=== PATIENT | female | born 1985 | race Hispanic/Latino ===

== ENCOUNTER 2019-03-25 18:31 | Emergency (ER) | payer SELFPAY ==
[~2019-03-25] VITALS: Ht 180.3 cm; Wt 136.1 kg
--- OUTSIDE RECORDS SUMMARY | 2019-03-25 18:34 | XMS REPORT ---
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 Allergies, Adverse Reactions, Alerts Allergy Name Allergy Type Status Severity Reaction(s) Onset Date Inactive Date Treating Clinician Comments No Known Allergies DA Active U 2019-01-30 00:00:00 No Known Allergies DA Active U 2013-10-06 00:00:00 Medications This patient has no known medications. 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 COMPARISON: Chest x-ray 10/06/2013 HISTORY: 33 years Female COUGH W/ SOB FINDINGS: Lungs: Atelectasis versus infiltrates lower segments right upper lobe. Atelectasis versus infiltrates left midlung field. These findings are new since old chest x- ray 10/06/2013. Lungs are hypoinflated. Mediastinum and awa: No enlargement or other mass. Cardiovascular structures: No cardio megaly. No abnormalities in vascular structures. Pleura/CP angles: Clear. No pneumothorax. Bones: No osseous abnormalities. Soft tissues: No abnormalities. Tubes and lines: None. Other: None. IMPRESSION: Atelectasis versus infiltrates lower segments right upper lobe. Atelectasis versus infiltrates left midlung field. These findings are new since old chest x-ray 10/06/2013. at 1232 Reported and signed by: Julian Collins M.D. CC: Lesley Lares MD; Ramon Stoll Technologist: Cynthia Licea RT(R)(CT) Trnscrpt Data: 12/11/2018 ([id number]) Charlene Orig Print D/T: S: 12/11/2018 ([id number]) PAGE 1 Signed Report
[2019-03-25] MEDS ORDERED: BACTRIM DS TAB1 EACH PO (19:01)
[2019-03-25] MEDS ORDERED: KEFLEX500 MG PO (19:01)
== END 2019-03-25 19:26 | disposition home or self-care (01) ==
LOC: FSED 18:31
DX: L02.411 Cutaneous abscess of right axilla (principal); L01.01 Non-bullous impetigo
CPT/HCPCS: 87071; 87186; 87205; 99283